=== PATIENT | male | born 1970 | race Caucasian/White ===

== ENCOUNTER → 2020-01-18 14:24 | Outpatient (REF) | payer BC, SELFPAY | LOC: ANHLAB 14:24 | PROVIDERS: PCP Family Medicine; Visit Provider Nurse Practitioner | DX: D17.22 Benign lipomatous neoplasm of skin and subcutaneous tissue of left arm (principal) | CPT/HCPCS: 88304 ==

== ENCOUNTER 2020-08-31 11:55 | Outpatient (NON) | payer BC, SELFPAY ==
[2020-08-31 23:40] LABS: SARS-CoV-2 RNA PCR Negative
== END 2020-08-31 11:56 ==
LOC: ANHCOVIDDT 11:56
PROVIDERS: PCP Family Medicine; Visit Provider Nurse Practitioner Family
DX: R68.89 Other general symptoms and signs (principal); Z20.828 Contact with and (suspected) exposure to other viral communicable diseases
CPT/HCPCS: 87635; C9803; U0003

== ENCOUNTER → 2021-10-23 13:21 | Outpatient (REF) | payer BC, SELFPAY | LOC: ANHLAB 13:21 | PROVIDERS: PCP Family Medicine; Visit Provider Nurse Practitioner | DX: R22.9 Localized swelling, mass and lump, unspecified (principal) | CPT/HCPCS: 88304 ==

== ENCOUNTER → 2022-02-19 15:30 | Outpatient (REF) | payer BC, SELFPAY | LOC: ANHLAB 15:30 | PROVIDERS: PCP Family Medicine; Visit Provider Surgery Plastic and Reconstructive Surgery | DX: D22.4 Melanocytic nevi of scalp and neck (principal) | CPT/HCPCS: 88305 ==

== ENCOUNTER 2022-12-18 00:16 | Day surgery (SDC) | payer OTHER, SELFPAY ==
[2022-11-29 12:33] VITALS: BMI 37.6
[2022-12-18 11:21] VITALS: BP 167/96; PULSE 57; RESP 18; TEMP 35.9; O2SAT 97
--- NOTE | 2022-12-18 11:24 | P.HP_ITS ---
History of Present Illness History of Present Illness Consent: Risks, benefits, and alternatives have been discussed and questions answered. Patient agrees to proceed with procedure. Chief complaint: neoplasm screening Narrative: Goukl Brown is a 52 year old male Presents for screening colonoscopy. Patient's current weight appetite and bowel movements are normal. Patient denies abdominal pain. He has had no bleeding. Family history noncontributory. Review of Systems Review of Systems: Review of systems noncontributory. [facility] Past Medical History Medical History Adult BMI 38.0-38.9 kg/sq m BMI 35.0-35.9,adult BMI 36.0-36.9,adult BMI 37.0-37.9, adult BMI 40.0-44.9, adult Scrotal cyst Shoulder impingement Surgical History Surgical History History of knee surgery Bilateral Family History Family History Grandparent Hypertension Cerebrovascular accident Acute myocardial infarction Family history of malignant neoplasm Father Family history of diabetes mellitus in first degree relative Mother No problems noted. 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 Gender identity (if verbalized by the patient): Male Spiritual care concerns: No Meds Home Medications and Allergies Home Medications Medication Instructions Recorded Confirmed Type spironolactone 25 mg tablet 25 mg PO DAILY #90 tabs 02/09/22 12/18/22 Rx amlodipine 10 mg tablet 10 mg PO DAILY #90 tabs 03/26/22 12/18/22 Rx losartan 100 1 tablet PO DAILY #90 tabs 07/22/22 12/18/22 Rx mg-hydrochlorothiazide 25 mg tablet nebivolol 20 mg tablet (Bystolic) 20 mg PO DAILY 11/29/22 12/18/22 History allopurinol 100 mg tablet See Rx Instructions .Route 12/17/22 12/18/22 Rx .COMPLEX #270 tabs Allergies Allergy/AdvReac Type Severity Reaction Status Date / Time Penicillins Allergy Intermediate Swelling Verified 12/18/22 11:16 of Lip/Tongue/Throat morphine AdvReac Severe NAUSEA/VOMI Verified 12/18/22 11:16 TING Exam Narrative: Physical exam reveals patient be alert. Vital signs stable. HEENT exam is unremarkable. Patient is anicteric. Lungs are clear to auscultation and percussion. Heart is without murmur or extra sounds. Abdomen bowel sounds present soft nontender with no organomegaly. Digital external rectal exam normal. Assessment and Plan Assessment and plan (1) Encounter for screening colonoscopy: Code(s): Z12.11 - Encounter for screening for malignant neoplasm of colon Status: Acute Assessment and Plan: Patient presents today for screening colonoscopy. He appears to be at average risk for colon polyps. Further recommendations may be given after endoscopy.
[2022-12-18] MEDS: LACTATED RINGERS 1,000 ML 150 ML IV CONT (11:33)
--- NOTE | 2022-12-18 11:56 | WPDANESEPPF ---
Anes - Initial Pre Proc Eval Procedure: Operation Date: 12/18/22 12:30 Proposed Procedures p Screening Colonoscopy - Kb Heller MD Date/Time: 12/18/22 11:56 Surgeon: Kb Heller MD Pre Op Diagnosis: neoplasm screening Patient Data Age: 52 Gender: M Height: 1.7 m Weight: 106.5 kg Last Vital Signs Temp 35.9 C L 12/18/22 11:21 Pulse 57 L 12/18/22 11:21 Resp 18 12/18/22 11:21 BP 167/96 H 12/18/22 11:21 Pulse Ox 97 12/18/22 11:21 O2 Del Method Room Air 12/18/22 11:21 Allergies Allergy/AdvReac Type Severity Reaction Status Date / Time Penicillins Allergy Intermediate Swelling Verified 12/18/22 11:16 of Lip/Tongue/Throat morphine AdvReac Severe NAUSEA/VOMI Verified 12/18/22 11:16 TING Home Medications Medication Instructions Recorded Confirmed Type spironolactone 25 mg tablet 25 mg PO DAILY #90 tabs 02/09/22 12/18/22 Rx amlodipine 10 mg tablet 10 mg PO DAILY #90 tabs 03/26/22 12/18/22 Rx losartan 100 1 tablet PO DAILY #90 tabs 07/22/22 12/18/22 Rx mg-hydrochlorothiazide 25 mg tablet nebivolol 20 mg tablet (Bystolic) 20 mg PO DAILY 11/29/22 12/18/22 History allopurinol 100 mg tablet See Rx Instructions .Route 12/17/22 12/18/22 Rx .COMPLEX #270 tabs Patient hx anesthesia problems: none Family hx anesthesia problems: none Results Review: All pre-operative results and documents have been reviewed as part of the pre-operative evaluation. [facility] Past Medical History Medical History Adult BMI 38.0-38.9 kg/sq m BMI 35.0-35.9,adult BMI 36.0-36.9,adult BMI 37.0-37.9, adult BMI 40.0-44.9, adult Scrotal cyst Shoulder impingement Surgical History Surgical History History of knee surgery Bilateral Family History Family History Grandparent Hypertension Cerebrovascular accident Acute myocardial infarction Family history of malignant neoplasm Father Family history of diabetes mellitus in first degree relative Mother No problems noted. 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 Informed Consent: The patient's anesthetic plan and its attendant risks and benefits were discussed with the patient/family/POA. Questions were solicited and answers provided to the satisfaction of the patient/family/POA.
[2022-12-18 12:32] VITALS: BP 105/66; PULSE 54; RESP 23; O2SAT 97
[2022-12-18 12:42] VITALS: BP 115/80; PULSE 50; RESP 17; O2SAT 97
[2022-12-18 12:52] VITALS: BP 128/84; PULSE 51; RESP 16; O2SAT 98
[2022-12-18 13:02] VITALS: BP 126/84; PULSE 54; RESP 18; O2SAT 98
== END 2022-12-18 13:02 | disposition home or self-care (01) ==
PROVIDERS: PCP Physician Assistant Medical; Visit Provider Internal Medicine Gastroenterology
PROC: 0DJD8ZZ Inspection of Lower Intestinal Tract, Via Natural or Artificial Opening Endoscopic (ICD-10-PCS; CPT 45378; principal; 2022-12-18 12:30)
DX: Z12.11 Encounter for screening for malignant neoplasm of colon (principal); D12.2 Benign neoplasm of ascending colon; D12.4 Benign neoplasm of descending colon; K64.8 Other hemorrhoids; E66.9 Obesity, unspecified; Z68.36 Body mass index [BMI] 36.0-36.9, adult
CPT/HCPCS: 45385; 88305; J2704; J7120

== ENCOUNTER 2024-03-19 12:38 | Outpatient (CLI) | payer OTHER, SELFPAY | END 2024-03-19 12:39 | disposition home or self-care (01) | LOC: ANHAUDIO 12:38 | PROVIDERS: PCP Family Medicine; Visit Provider Family Medicine | DX: H90.42 Sensorineural hearing loss, unilateral, left ear, with unrestricted hearing on the contralateral side (principal) | CPT/HCPCS: 92557; 92567 ==